=== PATIENT | male | born 1960 | race Hispanic/Latino ===

== ENCOUNTER 2019-04-05 17:32 | Emergency (ER) | payer SELFPAY ==
--- NOTE | 2019-04-05 18:42 | ULT ---
EXAM: Testicular/scrotal ultrasound HISTORY: Scrotal pain COMPARISON: None TECHNIQUE: Multiplanar grayscale and color Doppler images were obtained in a testicular/scrotal ultra sound. Spectral analysis of the Doppler waveforms of the testicles were performed. FINDINGS: Right testicle: Normal in echogenicity. No focal mass. Normal internal flow. Left testicle: Normal in echogenicity. No focal mass. Normal internal flow. Right epididymis. 8 mm epididymal cyst. Enlarged with increased internal flow. Left epididymis. No epididymal cyst. Normal internal flow. Small right hydrocele is present. No varicocele is present. IMPRESSION: 1. Right epididymitis with reactive hydrocele 2. Small right epididymal cyst
[2019-04-05 19:46] LABS: Bilirubin Negative (Negative); Blood, Urine 1+ (Negative); Clarity Clear (Clear); Glucose, Urine (Dipstick) Normal (Negative); Leukocyte 75 Leu/uL (Negative); Nitrite Negative (Negative); Protein, Urine (Dipstick) 20 mg/dL (Neg-Trace); Urobilinogen Normal mg/dL (Less than 2)
[2019-04-05 20:00] LABS: Bacteria/HPF None Seen HPF (None Seen)
[2019-04-07 00:29] LABS: Chlam.trachomatis by PCR,Urine DETECTED (NotDetected)
== END 2019-04-05 20:23 | disposition home or self-care (01) ==
LOC: ERS 17:32
DX: N45.1 Epididymitis (principal)
CPT/HCPCS: 76870; 81015; 87491; 87591; 93976